=== PATIENT | male | born 1970 | race Caucasian/White ===

== ENCOUNTER 2021-09-05 20:33 | Emergency (ER) | payer SELFPAY ==
[2021-09-05] MEDS ORDERED: Penicillin V Potassium 250 MG TAB ONE (20:50)
[2021-09-05] MEDS ORDERED: Ibuprofen 800 MG TAB ONE (20:50)
== END 2021-09-05 20:54 | disposition home or self-care (01) ==
LOC: MADERS 20:33
DX: K04.7 Periapical abscess without sinus (principal); F17.210 Nicotine dependence, cigarettes, uncomplicated
CPT/HCPCS: 99282

== ENCOUNTER 2022-01-16 07:17 | Emergency (ER) | payer SELFPAY ==
[2022-01-16] MEDS ORDERED: Naproxen 500 MG TAB ONE (07:55)
[2022-01-16] MEDS ORDERED: Sulfameth/Trimethoprim DS 800-160mg TAB ONE (07:55)
== END 2022-01-16 08:10 | disposition home or self-care (01) ==
LOC: MADERS 07:17
DX: L03.114 Cellulitis of left upper limb (principal); F17.210 Nicotine dependence, cigarettes, uncomplicated
CPT/HCPCS: 99283